=== PATIENT | female | born 1940 | race Two or more races ===

== ENCOUNTER 2019-04-30 09:11 | Outpatient (CLI) | payer OTHER ==
[~2019-04-30 09:11] MED LIST: ASA81 MG PO; CEFADROXIL500 MG PO; HYDROCHLOROTH12.5 MG PO; JANUMET 50-1,1 UDTAB PO; LIPITOR20 MG PO; LISINOPRIL20 MG PO; PERCOCET 5/3251 TAB PO; TOPROL XL50 M1 PO; XARELTO10 MG PO
== END 2019-04-30 09:36 | disposition home or self-care (01) ==
LOC: NUCLEAR 09:11
DX: G30.8 Other Alzheimer's disease (principal)
CPT/HCPCS: 78803; A9557